=== PATIENT | male | born 1980 ===

== ENCOUNTER 2025-01-14 06:25 | Day surgery (SDC) | payer BC, SELFPAY | END 2025-01-14 10:52 | disposition home or self-care (01) | LOC: GI 06:25 | PROVIDERS: ATTENDING PHYSICIAN Internal Medicine | DX: Z12.11 Encounter for screening for malignant neoplasm of colon (principal); K64.8 Other hemorrhoids; D12.4 Benign neoplasm of descending colon; K63.5 Polyp of colon | CPT/HCPCS: 45385; 88305 ==